=== PATIENT | male | born 1975 | race Caucasian/White ===

== ENCOUNTER 2025-08-16 05:22 | Observation (INO) ==
--- NOTE | 2025-07-17 13:54 | PAT Medication Instructions ---
Medication Instructions Date of Service July 17, 2025 Home Medications Medication Instructions Recorded metformin 500 mg tablet 500 mg PO BID #180 tabs 12/21/24 metformin 500 mg tablet 500 mg PO BID ibuprofen 800 mg tablet 800 mg PO UD PRN pain losartan 25 mg tablet 25 mg PO QAM ASK your surgeon for instructions ibuprofen 800 mg tablet 800 mg PO UD PRN pain DO NOT take the morning of surgery metformin 500 mg tablet 500 mg PO BID losartan 25 mg tablet 25 mg PO QAM Take evening before surgery metformin 500 mg tablet 500 mg PO BID MORNING OF SURGERY: NOTHING TO EAT OR DRINK AFTER MIDNIGHT Other Notes If you have any questions please call us at [phone] or [phone] or [phone] or [phone]
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
[2025-08-16] MEDS: dexAMETHasone**PF** 10 MG/ML VIAL IV SCH (06:00)
[2025-08-16] MEDS: LR 500ML BOLUS, THEN 15ML/HR IV SCH (06:01)
[2025-08-16] MEDS: FAMOTIDINE 20 MG TAB PO SCH (06:01)
[2025-08-16] MEDS: GABAPENTIN 900 MG DOSE PO SCH (06:01)
[2025-08-16] MEDS: LR 60ML/HR IV SCH (06:01)
[2025-08-16] MEDS: ACETAMINOPHEN 500 MG TAB PO SCH ×2 (06:01→14:05)
[2025-08-16] MEDS ORDERED: ROPIVACAINE 0.5% 5 MG/ML 30 ML VIAL ONE (06:32)
[2025-08-16] MEDS ORDERED: MIDAZOLAM HCL 1 MG/ML 2ML VIAL ONE ×2 (06:34→06:41)
[2025-08-16] MEDS ORDERED: KETOROLAC 30 MG/ML VIAL IV PRN (06:34)
[2025-08-16] MEDS ORDERED: ATROPINE SULFATE 0.1 MG/ML 10ML SYR IV PRN (06:34)
[2025-08-16] MEDS ORDERED: ONDANSETRON INJ 2 MG/ML 2 ML VIAL IV PRN ×2 (06:34→09:51)
[2025-08-16] MEDS ORDERED: HYDROmorphone INJ 1 MG/ML SYRINGE IV PRN (06:34)
[2025-08-16] MEDS ORDERED: ONDANSETRON INJ 2 MG/ML 2 ML VIAL ONE (06:35)
[2025-08-16] MEDS ORDERED: KETAMINE HCL 10MG/ML SYR ONE (06:35)
[2025-08-16] MEDS ORDERED: PROPOFOL IV EMULSION 10 MG/ML 20 ML VIAL IV ONE ×4 (06:35→08:05)
--- NOTE | 2025-08-16 06:38 | History & Physical Bridge Note ---
Date of Service August 16, 2025 History & Physical Bridge Note I have examined the patient, reviewed the History & Physical and in the interval since the performance of the History & Physical I have noted the following changes of clinical significance: no changes noted
[2025-08-16] MEDS: TRANEXAMIC ACID 1,000 MG **IV Pre-op IV SCH (06:45)
[2025-08-16] MEDS: ORTHO JOINT ANESTHETIC ONE (07:32)
[2025-08-16] MEDS: ROPIV 0.5% 246mg, Ketorolac 30mg, EPINEPHrine 0.5mg in NSS INFIL SCH (07:40)
--- NOTE | 2025-08-16 08:07 | Operative Report ---
PG Post Operative Report Pre & Post Diagnosis Operation Date: 08/16/25 07:00 Pre-Op Diagnosis: arthritis of left hip Post-Op Diagnosis: arthritis of left hip I identified the patient and participated in the time-out.: Yes Procedure Operation Date: 08/16/25 07:00 Actual Procedures p Right Anterior Total Hip Arthroplasty(Right) - Ryan Collado DO Surgeon Ryan Collado DO Filter Cleaner Cullen Mathur PA-C Estimated Blood Loss 250 Findings Consistent with Post-Op Diagnosis Specimens Right femoral head Description of Procedure Implants used I used a [employer]immer[employer]omet total hip arthroplasty system with a size 2 high offset Z1 stem, a 54 mm G7 cup, an E1 polyethylene liner, a 40 mm ceramic head with a +3.5 neck. [place] arrived at the hospital for the above procedure. He was seen in the preoperative holding area and the operative extremity was identified and signed. He was given a spinal anesthetic, a preoperative antibiotic, and TXA. He was then taken back to the operating room and laid on the table in the supine position. He was given basic sedation. The operative leg was secured to a Ashish stst leg positioner. The hip was then prepped and draped in sterile fashion. A timeout was done and the patient and the operative extremity was properly identified. An anterior approach was used. Dissection was taken down through the fascia and the tensor muscle belly was retracted laterally and the rectus was retracted medially. The circumflex vessels were identified and ligated. The capsule was then incised and tagged for later repair. The femoral neck was then cut and the femoral head was removed. The acetabulum was exposed. Time was spent doing a complete circumferential labral release. Sequential reaming of the acetabulum up to a size 53 reamer was done. Final reamings were done under fluoroscopy to ensure appropriate version. A Biomet 54 mm G7 cup was then impacted into place. The E1 polyethylene liner was then snapped into place. Surrounding soft tissues were then injected with 100 cc of an orthopedic pain control cocktail. The proximal femur was then exposed. Sequential broaching up to a size 2 broach was done. Off that broach a size 40 head with a +3.5 neck was trialed. The hip was reduced and fluoroscopic images showed anatomic alignment of the implants in acceptable length. The broach was removed. The final size 2 high offset Z1 stem was then impacted into place. A ceramic 40 mm head with a +3.5 neck was then impacted onto the stem and the hip was reduced. Final fluoroscopic images showed anatomic alignment of the hip. The capsule was then closed with #1 Vicryl suture. A dilute betadyne lavage was then done for 3 minutes. The joint was then irrigated with normal saline solution. The fascia was closed with #1 PDS suture. Skin was closed with 2-0 Vicryl, Panaca Zipline, and a Silverlon dressing. He was then transferred to a hospital bed and taken to the post anesthesia care unit in stable condition. He tolerated the procedure well. Cullen Mathur PA-C, was present for the entire procedure. He was critical for patient positioning, prepping, draping, retraction exposure, wound closure and application of sterile dressing. I attest to the content of the Intraoperative Record and any orders documented therein. Any exceptions are noted below.
[2025-08-16 09:31] VITALS: RESP 16
--- NOTE | 2025-08-16 09:33 | XRay Report ---
SINGLE VIEW PELVIS; SINGLE VIEW RIGHT HIP CLINICAL HISTORY: Postoperative examination. FINDINGS: An AP portable view of the hips and pelvis with a crosstable lateral portable view of the r ight hip are obtained. Comparison is made to study dated 12/29/2024. A bipolar right hip arthroplasty i s in near-anatomic alignment. No acute fracture is identified. There are expected postoperative john ges overlying the right hip including subcutaneous gas and soft tissue swelling. Mild/moderate arthri tic change is seen in the left hip. IMPRESSION: Expected postoperative findings status post right hip arthroplasty. No acute fracture is seen. ACT 112: Negative or not required by law. Electronically signed by: Uziel Lowe M.D. 08/16/2025 9:32 AM
[2025-08-16] MEDS ORDERED: NALOXONE HCL 0.4 MG/1 ML VIAL/CARP IV PRN (09:51)
[2025-08-16] MEDS ORDERED: METOCLOPRAMIDE HCL INJ 5 MG/ML 2 ML VIAL IV PRN (09:51)
[2025-08-16] MEDS ORDERED: MAGNESIUM HYDROXIDE SUSP 30 ML UDC PO PRN (09:51)
[2025-08-16] MEDS ORDERED: PHARMACY GLYCEMIC MGMT CONSULT PRN (09:51)
[2025-08-16] MEDS ORDERED: HYDROmorphone INJ 0.5 MG/0.5 ML SYR IV PRN (09:51)
--- NOTE | 2025-08-16 09:53 | Anesthesiology Progress Note ---
Date of Service August 16, 2025 Anesthesia Post Procedure Vital Signs Vital Signs: Temp Pulse Pulse Resp BP Pulse Ox O2 Del Method 08/16/25 09:51 36.5 C 72 16 119/75 98 Room Air 08/16/25 09:30 66 16 132/72 97 Room Air 08/16/25 09:15 66 14 107/67 98 Room Air 08/16/25 09:00 36.5 C 70 18 110/78 99 Room Air 08/16/25 08:55 73 20 126/77 98 Room Air 08/16/25 08:45 74 20 108/69 97 Oxymask 08/16/25 08:35 36.3 C L 86 18 116/69 97 Oxymask 08/16/25 05:47 36.7 C 71 20 145/93 H 97 Room Air O2 Flow Rate 08/16/25 09:51 08/16/25 09:30 08/16/25 09:15 08/16/25 09:00 08/16/25 08:55 08/16/25 08:45 5 08/16/25 08:35 10 08/16/25 05:47 Transfer of Care Handoff Completed per policy Notes Mental Status: alert / awake / arousable Patient Amnestic to Procedure: Yes Nausea / Vomiting: adequately controlled Pain: adequately controlled Airway Patency, RR, SpO2: stable & adequate BP & HR: stable & adequate Hydration State: stable & adequate Neuraxial Anesthesia: was administered and sensory block is resolving Anesthetic Complications: no major complications apparent
--- NOTE | 2025-08-16 10:05 | Fluoroscopy Report ---
FL hip RT 1V CLINICAL HISTORY: RT TOTAL HIP COMPARISON STUDY: 12/29/2024 FLUOROSCOPY TIME: 20 seconds FLUOROSCOPY IMAGES: 1 EXPOSURE DOSE: 4.5 mGy FINDINGS: Fluoroscopy was provided for right hip prosthesis. IMPRESSION: Intraoperative fluoroscopy. ACT 112: Negative or not required by law. Electronically signed by: Brian Ceja M.D. 08/16/2025 10:03 AM
[2025-08-16] MEDS ORDERED: GLUCAGON FOR INJ 1 MG VIAL SQ PRN (10:15)
[2025-08-16] MEDS ORDERED: GLUCOSE 10 TAB/TUBE PO PRN (10:15)
[2025-08-16] MEDS ORDERED: CARBOHYDRATES FOR HYPOGLYCEMIA PO PRN (10:15)
[2025-08-16] MEDS ORDERED: GLUCOSE 40% GEL 15 GM TUBE PO PRN (10:15)
[2025-08-16] MEDS ORDERED: DEXTROSE 50% 50 ML SYRINGE IV PRN (10:15)
[2025-08-16] MEDS: LOSARTAN POTASSIUM 25 MG TAB PO SCH (10:32)
[2025-08-16] MEDS: MULTIVITAMIN TAB PO SCH (10:32)
[2025-08-16] MEDS: KETOROLAC TROMETHAMINE 15 MG/ML VIAL IV SCH (10:32)
[2025-08-16] MEDS: DOCUSATE SODIUM 100 MG CAP PO SCH (10:43)
[2025-08-16] MEDS: SODIUM CHLORIDE 0.9% 1,000 ML IV SCH (10:43)
[2025-08-16] MEDS: INSULIN ASPART PER UNIT CHARGE SC SCH (12:56)
--- NOTE | 2025-08-16 13:08 | Pharmacy Report ---
Pharmacy Glycemic Short Note 2 - Date of Service August 16, 2025 - Glycemic Short BSG Results (Last 24 hours): 08/16/25 08/16/25 05:43 11:45 POC Glucose 133 H 218 H OUTPATIENT ANTIDIABETIC REGIMEN: * metformin 500mg po BID HbA1c 6.4% on 07/24/25 ASSESSMENT: * MEDHAT is a 50 year old male who was admitted today for a right anterior total hip arthroplasty (POD#0). Pharmacy was consulted for glycemic management postop. * Preop BSG was 133mg/dL and post op was 218mg/dL (of note, pt ate a meal prior to this reading). He did have dexamethasone 10mg iv x 1 preop. * A weight based bolus insulin regimen with a stress between 1 and 2 was started. A Lantus scale x 1 (0, 10 or 20 units depending on BSG) was added at supper time today incase his BSG remains high from the stress of surgery/steroids. PLAN FOR INPATIENT GLYCEMIC CONTROL: * Hold outpatient oral diabetes medications * Basal insulin * Lantus scale x 1 at supper time today (0,10,or 20 units depending on BSG) * Bolus insulin * NovoLog per scale ACHS or Q6hrs while NPO * Goal Range: Low 120 mg/dL - High 150 mg/dL * Correction Factor: 30 mg/dL/unit * Nutritional / Prandial insulin per carb ratio of 1 unit per 10 grams CHO consumed
[2025-08-16] MEDS: LANTUS PER UNIT CHARGE SC SCH (17:58)
[2025-08-16] MEDS: ASPIRIN 81 MG ECTAB PO SCH (19:52)
[2025-08-16] MEDS: SENNA 8.6 MG TAB PO SCH (21:35)
[2025-08-17 07:48] VITALS: TEMP 97.5; O2SAT 97
--- NOTE | 2025-08-17 08:39 | Orthopedic Progress Note ---
Date of Service August 17, 2025 Assessment & Plan (1) Status post right hip replacement: Overall he is doing fairly well. He is not having much pain in the right hip. He will be seen by physical therapy today for ambulation and range of motion exercises. He is on aspirin for DVT prophylaxis. He can be discharged to home later today. He will follow-up with orthopedics in 2 weeks. Jordan Yates was seen and examined at bedside this morning. Overall is doing very well. He is not having much pain in the right hip. Has been up and ambulating to the bathroom. He has no complaints.. Review of Systems All systems reviewed & are unremarkable except as noted in HPI & below. Physical Exam On physical exam of the right hip, the dressing is clean and dry. His leg is out in full extension. He has active dorsiflexion and plantarflexion of the right ankle.. Results & Data Results & Data Laboratory Results . Diagnostic Findings Postoperative x-rays of the right hip show the prosthesis to be in anatomic alignment without any evidence of fracture, dislocation, or loosening.. . PG Care Time/CCT Total # of Minutes Spent Total Time Spent with Patient: Total time spent is greater than 50% in coordination of care (as documented) at patient's floor/unit and/or counseling patient: Coding Level of Care Code 10244 Post Operative Follow-Up Diagnoses Status post right hip replacement Z96.641
[2025-08-17 09:25] VITALS: BP 142/64; PULSE 69
== END 2025-08-17 09:44 | disposition home or self-care (01) ==
LOC: 3E 05:22 → ASU 05:22